=== PATIENT | female | born 1980 | race African-American/Black ===

== ENCOUNTER 2021-04-20 13:43 | Emergency (ER) | payer SELFPAY ==
--- NOTE | ~2021-04-20 | XR_ITS ---
EXAMINATION: XR chest 2V DATE: 04/20/2021 14:00 INDICATION: Right-sided chest pain TECHNIQUE: PA and lateral views of the chest were obtained. COMPARISON: None FINDINGS: The lungs are clear with no focal airspace opacities, pulmonary edema, pleural effusion or pneumothor ax. The cardiomediastinal silhouette is normal. Visualized bones and soft tissues are unremarkable. IMPRESSION: 1. Normal chest radiograph. Reviewed, dictated and finalized at location A. IMPRESSION: 1. Normal chest radiograph.
--- NOTE | 2021-04-20 13:44 | ECG_ITS ---
Measurements Intervals [place] Rate: 87 P: 35 UT: 145 QRS: -7 QRSD: 85 T: 21 QT: 339 QTc: 408 Interpretive Statements SINUS RHYTHM INCOMPLETE RIGHT BUNDLE BRANCH BLOCK POOR R WAVE PROGRESSION, ANTERIOR LEADS BORDERLINE T WAVE ABNORMALITY- INFERIOR LEADS BORDERLINE ECG Electronically Signed On 04-20-2021 17:14:39 CDT by Ollie Alcazar D.O.
[2021-04-20 13:55] VITALS: BP 153/100; PULSE 91; RESP 16; TEMP 37; O2SAT 100
[2021-04-20 14:32] VITALS: BP 137/98; PULSE 83; RESP 18; TEMP 36.8; O2SAT 100
[2021-04-20 14:44] LABS: Basophils Percent Auto 0.4 % (0.2-1.2); Eosinophils Percent Auto 0.6 % (0-4.4); Hematocrit 37.8 % (37.0-47.0); Lymphocytes Absolute Auto 1.64 K/mm3 (0.9-3.2); Lymphocytes Percent Auto 33.1 % (18.3-44.2); Mean Corpuscular HGB Conc 31.7 g/dl (32-36); Mean Corpuscular Hemoglobin 24.6 pg (26-34); Mean Corpuscular Volume 77.6 fl (80-100); Mean Platelet Volume 9.5 fl (7.4-10.4); Monocytes Absolute Auto 0.5 K/mm3 (0.1-0.6); Monocytes Percent Auto 9.9 % (2.6-8.5); Neutrophils Absolute Auto 2.8 K/mm3 (1.3-6.7); Platelet Count Result 271 k/mm3 (150-375); Red Blood Count 4.87 M/mm3 (4.2-5.4)
[2021-04-20 14:54] LABS: Anion Gap 6 mmol/L (8-16); Blood Urea Nitrogen 13 mg/dL (7-17); Calcium 9.1 mg/dL (8.4-10.2); Carbon Dioxide 25 mmol/L (22-30); Chloride 106 mmol/L (98-107); Estimated CRCL calculation 124 ml/min; Estimated Glomerular Filt Rate > 60; Glucose 126 mg/dL (65-110); Potassium 3.4 mmol/L (3.4-5.0); Sodium 137 mmol/L (137-145)
[2021-04-20] MEDS: ASPIRIN 81 MG CHEWABLE TABLET 324 MG PO (15:01)
[2021-04-20 15:05] LABS: Troponin I < 0.012 ng/mL (0.000-0.034)
[2021-04-20 15:06] LABS: Partial Thromboplastin Time 29.1 SECONDS (22.3-36.8)
--- NOTE | 2021-04-20 15:06 | ED.GENADULT ---
HPI - General Adult General Chief complaint: Anxiety Stated complaint: cp Time Seen by Provider: 04/20/21 14:40 Source: patient and RN notes reviewed Mode of arrival: ambulatory Limitations: no limitations History of Present Illness HPI narrative: This is 40 year old female who presents for evaluation of right chest pain. Patient states she was driving when she developed tingling to her right hand. She stopped at store because she thought her blood pressure was high. She bought some vinegar to take for possible high blood pressure and she developed right lower chest pain. She states her reported she was having a panic attack so she sat back . She reports her symptoms continued and she was dizzy. Her symptoms resolved 30 minutes ago. She denies associated diaphoresis, sob, cough, abdominal pain, nausea, vomiting or urinary complaints. She states she started a new over the counter supplements for irregular periods yesterday. She reports intermittent tingling in her right hand for years. Related Data Home Medications Medication Instructions Recorded Confirmed No Home Medications 04/20/21 04/20/21 Allergies Allergy/AdvReac Type Severity Reaction Status Date / Time No Known Allergies Allergy Verified 04/20/21 14:33 Review of Systems Review of Systems: All systems reviewed & are unremarkable except as noted in HPI and below PMFSH Past Medical History Medical History (Updated 04/21/21 @ 00:00 by Background Datristan) Patient denies medical problems Surgical History Surgical History (Updated 04/20/21 @ 15:31 by Aline Maldonado MD) H/O section Social History Social History (Updated 04/20/21 @ 15:31 by Aline Maldonado MD) Smoking status: Former smoker Alcohol intake: never Substance use: never Exam Const: General: no acute distress and alert Eyes: EOM: EOMs intact bilaterally Chest: Chest palpation & inspection: normal inspection of the chest Resp: Effort & Inspection: normal respiratory effort and no retractions Auscultation: clear to auscultation bilaterally Cardio: Rate: regular rate Rhythm: regular rhythm Heart sounds: no murmurs Other: equal bilateral radial pulses GI: GI Palp: Yes Soft to palpation, No Tenderness to palpation present (GI) and No Guarding due to palpation present (GI) Auscultation: normal bowel sounds Back/Spine/Pelvis: Back: no CVA tenderness Skin: General skin exam: normal color Rashes: no rashes Neuro: General: patient oriented x3, moves all extremities, no focal motor deficits and CN's II-XI intact bilaterally Speech: normal speech Gait exam (Neuro): Normal gait present Extrem: General: normal to inspection Psych: Mental Status: mental status grossly normal Affect: normal affect Course Reevaluation(s) Reevaluation #1: PAtient has been asymptomatic in ER. I Discussed labs are unremarkable. I recommended follow up with PCP. She will need to establish care with someone. Date: 04/20/21 Time: 17:38 Vital Signs Vital signs: Vital Signs Temperature 98.6 F 04/20/21 13:55 Pulse Rate 91 04/20/21 13:55 Respiratory Rate 16 04/20/21 13:55 Blood Pressure 153/100 H 04/20/21 13:55 Pulse Oximetry 100 04/20/21 13:55 Temperature 98.2 F 04/20/21 14:32 Pulse Rate 80 04/20/21 17:53 Respiratory Rate 16 04/20/21 17:53 Blood Pressure 125/77 04/20/21 17:53 Pulse Oximetry 100 04/20/21 17:53 Medical Decision Making Vital Signs Vital Signs: Vital Signs Temperature 98.6 F 04/20/21 13:55 Pulse Rate 91 04/20/21 13:55 Respiratory Rate 16 04/20/21 13:55 Blood Pressure 153/100 H 04/20/21 13:55 Pulse Oximetry 100 04/20/21 13:55 Temperature 98.2 F 04/20/21 14:32 Pulse Rate 80 04/20/21 17:53 Respiratory Rate 16 04/20/21 17:53 Blood Pressure 125/77 04/20/21 17:53 Pulse Oximetry 100 04/20/21 17:53 Lab Data Lab results reviewed: Yes I reviewed the patient
[2021-04-20 15:22] LABS: Alanine Aminotransferase 16 U/L (4-35); Albumin Level 3.9 g/dL (3.5-5.1); Alkaline Phosphatase 91 U/L (38-126); Aspartate Amino Transferase 23 U/L (14-36); Bilirubin,Total 0.3 mg/dL (0.2-1.3); Lipase 43 U/L (23-300)
[2021-04-20 15:36] LABS: Add Urine Microscopic? YES; Appearance Urine Clear (Clear); Bilirubin Urine Negative (Negative); Blood Urine 1+ (Negative); Color Urine Yellow (Yellow); Glucose Urine UA Negative (Negative); Ketones Urine Negative (Negative); Leukocyte Esterase Ur Negative LEU/UL (Negative); Mucus Urine Rare /lpf; Nitrate Urine Negative (Negative); Protein Urine Negative (Negative); RBC Urine 0-2 /hpf (0-2); Specific Grav Ur 1.017 (1.001-1.035); Squamous Epithelial Cell Urine Occasional /hpf (Few); Urobilinogen Urine Negative mg/dL (<2.0); WBC Urine 0-3 /hpf
[2021-04-20 15:56] VITALS: BP 130/81; PULSE 80; RESP 15; O2SAT 100
[2021-04-20 17:06] VITALS: BP 113/80; PULSE 70; RESP 18; O2SAT 100
[2021-04-20 17:33] LABS: Troponin I < 0.012 ng/mL (0.000-0.034)
[2021-04-20 17:53] VITALS: BP 125/77; PULSE 80; RESP 16; O2SAT 100
== END 2021-04-20 17:54 | disposition home or self-care (01) ==
PROVIDERS: Emergency Medicine; Emergency Provider General Practice
DX: R20.2 Paresthesia of skin (principal); R07.9 Chest pain, unspecified; I45.10 Unspecified right bundle-branch block
CPT/HCPCS: 36415; 71046; 80048; 80076; 81001; 81025; 83690; 84484; 85025; 85610; 85730; 93005; 99284; A9270